=== PATIENT | male | born 1980 | race Caucasian/White ===

== ENCOUNTER 2021-07-12 06:56 | Emergency (ER) | payer SELFPAY ==
[~2021-07-12] VITALS: Ht 182.9 cm; Wt 90.9 kg
[2021-07-12 07:01] VITALS: TEMP 97.6
[2021-07-12 07:45] VITALS: BP 117/72; PULSE 92
== END 2021-07-12 07:45 | disposition home or self-care (01) ==
LOC: COL.ER 06:56
DX: S62.515A Nondisplaced fracture of proximal phalanx of left thumb, initial encounter for closed fracture (principal); F17.210 Nicotine dependence, cigarettes, uncomplicated; Y04.0XXA Assault by unarmed brawl or fight, initial encounter